=== PATIENT | male | born 1935 | race Caucasian/White ===

== ENCOUNTER 2016-09-08 09:33 | Emergency (ER) | payer MEDICARE, BC ==
[2016-09-08 09:34] VITALS: O2SAT 94
[2016-09-08] MEDS ORDERED: HYDROMORPHONE HCL 2 MG/ML SOL IM ONE (09:45)
[2016-09-08 09:48] VITALS: BP 140/73; PULSE 92; RESP 18; TEMP 98.4
[2016-09-08] MEDS ORDERED: HYDROMORPHONE 1 MG/ML SYRINGE ONE (09:55)
== END 2016-09-08 10:24 | disposition home or self-care (01) | DRG 103 ==
LOC: ED 09:33
DX: G43.909 Migraine, unspecified, not intractable, without status migrainosus (principal)
CPT/HCPCS: 99282; J1170

== ENCOUNTER 2016-09-08 19:37 | Emergency (ER) | payer MEDICARE, BC ==
[2016-09-08 19:49] VITALS: BP 155/73; PULSE 92; RESP 18; TEMP 97.5; O2SAT 97
[2016-09-08] MEDS ORDERED: AMITRIPTYLINE 10 MG TAB PO ONE (20:18)
[2016-09-08] MEDS ORDERED: AMITRIPTYLINE 25 MG TAB ONE (20:23)
[2016-09-08] MEDS ORDERED: AMITRIPTYLINE 25 MG TAB PO ONE (20:28)
== END 2016-09-08 20:37 | disposition home or self-care (01) | DRG 103 ==
LOC: ED 19:37
DX: G43.009 Migraine without aura, not intractable, without status migrainosus (principal)
CPT/HCPCS: 99282

== ENCOUNTER 2016-10-08 15:15 | Inpatient (IN) | payer MEDICARE, BC ==
[2016-10-08] MEDS ORDERED: NALOXONE HYDROCHLORIDE 0.4 MG/ML SOL IV PRN ×2 (15:24→15:25)
[2016-10-08] MEDS ORDERED: TEMAZEPAM 15MG 15 MG CAP PO PRN (15:25)
[2016-10-08] MEDS ORDERED: FUROSEMIDE 20mg SOL IV SCH (15:30)
[2016-10-08 15:49] LABS: BASOPHILS % (AUTO) 0 % (0-3); EOSINOPHILS % (AUTO) 1 % (0-9); HEMATOCRIT 39 % (39-53); MEAN CORPUSCULAR HGB CONC 33.8 gm/dl (32.0-36.0); MEAN CORPUSCULAR VOLUME 97 fL (80-100); MONOCYTES % (AUTO) 8.5 % (0-12); NEUTROPHILS % (AUTO) 77.3 % (37-80)
[2016-10-08 15:59] LABS: ALBUMIN 3.4 gm/dl (3.4-5.0); CALCIUM 8.8 mg/dl (8.5-10.1); POTASSIUM 3.9 mMol/L (3.5-5.1)
[2016-10-08] MEDS: HYDROMORPHONE 1 MG/ML SYRINGE IV PRN ×3 (16:06→22:25)
[2016-10-08] MEDS: SODIUM CHLORIDE 0.9% FLUSH 10 ML SOL IV SCH ×3 (16:06→22:40)
[2016-10-08] MEDS ORDERED: FENTANYL 25 MCG PATCH TDM TD SCH (17:15)
[2016-10-08] MEDS: CARBAMAZEPINE 400 MG PO SCH (20:55)
[2016-10-08] MEDS: TAMSULOSIN HYDROCHLORIDE 0.4 MG CAP PO SCH (20:55)
[2016-10-08] MEDS: SIMVASTATIN 20 MG TAB PO SCH (20:55)
[2016-10-08] MEDS: GABAPENTIN 300 MG CAP PO SCH (20:55)
[2016-10-09] MEDS ORDERED: HYDROMORPHONE 1 MG/ML SYRINGE IV ONE (00:22)
[2016-10-09] MEDS ORDERED: HYDROMORPHONE 1 MG/ML SYRINGE ONE ×2 (02:29→05:00)
[2016-10-09] MEDS: HYDROMORPHONE 1 MG/ML SYRINGE IV PRN (04:01)
[2016-10-09] MEDS: SODIUM CHLORIDE 0.9% FLUSH 10 ML SOL IV SCH ×6 (05:02→22:29)
[2016-10-09] MEDS ORDERED: DIPHENHYDRAMINE 25 MG CAP PO PRN (08:34)
[2016-10-09] MEDS ORDERED: HYDROMORPHONE 1 MG/ML SYRINGE IV PRN ×2 (08:36→08:37)
[2016-10-09] MEDS ORDERED: FENTANYL 25 MCG PATCH TDM TD SCH (08:38)
[2016-10-09] MEDS ORDERED: FENTANYL 50 MCG PATCH TDM TD SCH (08:45)
[2016-10-09] MEDS: LIDOCAINE 5% OINT TOP PRN ×3 (09:46→19:54)
[2016-10-09] MEDS: GABAPENTIN 300 MG CAP PO SCH ×3 (10:00→20:40)
[2016-10-09] MEDS: CARBAMAZEPINE 400 MG PO SCH ×2 (10:00→20:40)
[2016-10-09] MEDS: HYDROMORPHONE HYDROCHLORIDE 2 MG TAB PO PRN ×2 (10:01→20:39)
[2016-10-09] MEDS: FUROSEMIDE 20mg SOL IV SCH ×2 (10:01→14:14)
[2016-10-09] MEDS ORDERED: MAGNESIUM HYDROXIDE 30 ML SUS PO PRN (16:47)
[2016-10-09] MEDS ORDERED: SODIUM CHLORIDE 0.9% 250 ML 250 ML IV SCH (20:30)
[2016-10-09] MEDS: TAMSULOSIN HYDROCHLORIDE 0.4 MG CAP PO SCH (20:40)
[2016-10-09] MEDS: SIMVASTATIN 20 MG TAB PO SCH (20:40)
[2016-10-10] MEDS: HYDROMORPHONE HYDROCHLORIDE 2 MG TAB PO PRN ×6 (02:08→19:44)
[2016-10-10] MEDS: LIDOCAINE 5% OINT TOP PRN ×5 (04:54→21:39)
[2016-10-10 07:17] LABS: BASOPHILS % (AUTO) 1 % (0-3); EOSINOPHILS % (AUTO) 2 % (0-9); HEMATOCRIT 37 % (39-53); MEAN CORPUSCULAR VOLUME 97 fL (80-100); MONOCYTES % (AUTO) 10.9 % (0-12); NEUTROPHILS % (AUTO) 73.7 % (37-80)
[2016-10-10 07:22] LABS: CALCIUM 8.6 mg/dl (8.5-10.1); POTASSIUM 3.7 mMol/L (3.5-5.1)
[2016-10-10] MEDS: SODIUM CHLORIDE 0.9% FLUSH 10 ML SOL IV SCH (07:30)
[2016-10-10] MEDS ORDERED: HYDROMORPHONE 1 MG/ML SYRINGE IM PRN (08:34)
[2016-10-10] MEDS ORDERED: CARBAMAZEPINE 200 MG PO SCH (09:00)
[2016-10-10] MEDS: CARBAMAZEPINE 400 MG PO SCH ×2 (10:49→21:00)
[2016-10-10] MEDS: GABAPENTIN 300 MG CAP PO SCH ×3 (10:49→21:01)
[2016-10-10] MEDS: FUROSEMIDE 20 MG TAB PO SCH ×2 (10:50→16:02)
[2016-10-10] MEDS: TAMSULOSIN HYDROCHLORIDE 0.4 MG CAP PO SCH (21:02)
[2016-10-10] MEDS: SIMVASTATIN 20 MG TAB PO SCH (21:02)
[2016-10-10] MEDS: CARBAMAZEPINE 200 MG PO SCH (21:03)
[2016-10-11 07:18] LABS: CALCIUM 8.8 mg/dl (8.5-10.1); POTASSIUM 3.7 mMol/L (3.5-5.1)
[2016-10-11] MEDS: HYDROMORPHONE HYDROCHLORIDE 2 MG TAB PO PRN ×2 (08:21→10:53)
[2016-10-11] MEDS ORDERED: FENTANYL 100 MCG TD SCH (08:30)
[2016-10-11] MEDS: CARBAMAZEPINE 400 MG PO SCH (08:34)
[2016-10-11] MEDS: CARBAMAZEPINE 200 MG PO SCH (08:37)
[2016-10-11] MEDS: GABAPENTIN 300 MG CAP PO SCH ×2 (08:38→12:18)
[2016-10-11] MEDS: FUROSEMIDE 20 MG TAB PO SCH ×2 (08:39→11:37)
[2016-10-11] MEDS ORDERED: CEFUROXIME 250 MG/5 ML PDR PO SCH (09:00)
[2016-10-11] MEDS ORDERED: CEFPROZIL 250 MG/5 ML SUSP.RECON PO SCH (09:30)
[2016-10-11] MEDS: LIDOCAINE 5% OINT TOP PRN (10:58)
[2016-10-11 11:40] VITALS: BP 156/87; PULSE 77; RESP 20; TEMP 97.5; O2SAT 93
== END 2016-10-11 12:35 | DRG 74 ==
LOC: ACUTE CARE 15:17
PROVIDERS: ADMIT Family Medicine; ATTEND Family Medicine
DX: B02.29 Other postherpetic nervous system involvement (principal); E78.5 Hyperlipidemia, unspecified; Z79.891 Long term (current) use of opiate analgesic; R60.0 Localized edema; H92.01 Otalgia, right ear
CPT/HCPCS: 36415; 80048; 80053; 83880; 85025; 93306; 94762; 99070; J1940; J1170

== ENCOUNTER → 2017-11-19 | Day surgery (SDC) | payer MEDICARE, BC ==
[~2017-11-19] MED LIST: BUPIVACAINE HCL 0.5% MPF 10 ML SOL ONE
[2017-11-19 11:05] VITALS: RESP 18
[2017-11-19 11:09] VITALS: BP 148/94; PULSE 67; TEMP 96.4; O2SAT 66
== END | disposition home or self-care (01) | DRG 554 ==
LOC: SURG 09:39
PROVIDERS: ATTEND Nurse Anesthetist, Certified Registered
DX: M12.88 Other specific arthropathies, not elsewhere classified, other specified site (principal); M54.5 Low back pain

== ENCOUNTER 2017-12-10 08:49 | Day surgery (SDC) | payer MEDICARE, BC ==
[2017-12-10] MEDS ORDERED: BUPIVACAINE HCL 0.25% MPF 30 ML SOL INFIL ONE (09:25)
[2017-12-10] MEDS ORDERED: TRIAMCINOLONE ACETONIDE 40 MG/ML SUS ONE (09:25)
[2017-12-10 10:05] VITALS: BP 135/64; PULSE 70; RESP 16; TEMP 98.9; O2SAT 91
== END 2017-12-10 10:18 | disposition home or self-care (01) | DRG 556 ==
LOC: SURG 08:49
PROVIDERS: ATTEND Nurse Anesthetist, Certified Registered
DX: M25.551 Pain in right hip (principal)
CPT/HCPCS: J3300

== ENCOUNTER 2018-02-05 09:22 | Day surgery (SDC) | payer MEDICARE, BC ==
[2018-02-05] MEDS ORDERED: LIDOCAINE HCL 2% MPF 10 ML SOL ONE (10:02)
[2018-02-05] MEDS ORDERED: LIDOCAINE HCL 1% MPF 30 SOL ONE (10:02)
[2018-02-05 10:26] VITALS: BP 131/80; PULSE 70; RESP 18; TEMP 97.4; O2SAT 92
== END 2018-02-05 10:50 | disposition home or self-care (01) | DRG 554 ==
LOC: SURG 09:22
PROVIDERS: ATTEND Nurse Anesthetist, Certified Registered
DX: M12.88 Other specific arthropathies, not elsewhere classified, other specified site (principal)
CPT/HCPCS: J2001

== ENCOUNTER 2018-04-28 10:20 | Day surgery (SDC) | payer MEDICARE, BC ==
[2018-04-28] MEDS ORDERED: MIDAZOLAM 2 MG/2 ML SOL ONE (11:23)
[2018-04-28] MEDS ORDERED: FENTANYL 100MCG/2ML SOL ONE (11:24)
[2018-04-28] MEDS ORDERED: BUPIVACAINE HCL 0.25% MPF 30 ML SOL INFIL ONE (11:27)
[2018-04-28] MEDS ORDERED: LIDOCAINE HCL 1% MPF 30 SOL ONE (11:27)
[2018-04-28] MEDS ORDERED: TRIAMCINOLONE ACETONIDE 40 MG/ML SUS ONE (11:27)
[2018-04-28] MEDS ORDERED: LIDOCAINE HCL 2% MPF 10 ML SOL ONE (11:27)
[2018-04-28 12:21] VITALS: RESP 18
[2018-04-28 12:50] VITALS: BP 125/67; PULSE 66; TEMP 98.8; O2SAT 92
== END 2018-04-28 13:12 | disposition home or self-care (01) | DRG 554 ==
LOC: SURG 10:20
PROVIDERS: ATTEND Nurse Anesthetist, Certified Registered
DX: M12.88 Other specific arthropathies, not elsewhere classified, other specified site (principal)
CPT/HCPCS: J2250; J3010; J2001; J3300